=== PATIENT | male | born 1970 | race Caucasian/White ===

== ENCOUNTER 2020-10-06 08:28 | Emergency (ER) | payer OTHER, SELFPAY ==
[2020-10-06] VITALS (47 sets, daily range): BP systolic 116–163; BP diastolic 64–105; PULSE 65–87; RESP 12–20; TEMP 36.1; O2SAT 93–100
--- NOTE | ~2020-10-06 | CT_ITS ---
EXAMINATION: CTA brain carotid DATE: 10/06/2020 11:22 INDICATION: Pulsatile tinnitus. TECHNIQUE: Computed tomographic angiography (CTA) of the head was performed without and with 100 mL O mnipaque-350 intravenous contrast. CTA of the neck was performed with intravenous contrast. Automated exposure control and iterative reconstruction technique were employed. The dose-length product was 1 930.35 mGy-cm. Maximum intensity projection and volume rendered 3D-reconstructions were created by amelia negro technologist on a separate workstation. COMPARISON: None. FINDINGS: HEAD CTA: There is no intracranial hemorrhage, acute infarction, or abnormal intracranial mass lesion . The ventricles are normal in size. There is mild mucosal thickening in the paranasal sinuses. The m astoid air cells are normal. The orbits are normal. The vertebral arteries are codominant. There is n o significant stenosis of basilar artery or the posterior cerebral arteries. There is no significant stenosis of the intracranial internal carotid arteries or anterior or middle cerebral arteries. Anter ior communicating artery is normal. The posterior communicating arteries are normal. There is no aneu rysm. NECK CTA: There are no pathologically enlarged lymph nodes. There is no significant stenosis in the v ertebral arteries. There is mild plaque in the proximal internal carotid arteries. There is 0% stenos is of the proximal right internal carotid artery relative to normal distal artery lumen diameter (RYANNE CET criteria). There is 0% stenosis of the proximal left internal carotid artery relative to normal d istal artery lumen diameter. There is mild cervical spondylosis. IMPRESSION: 1. Normal brain. No aneurysm or significant intracranial arterial stenosis. 2. 0% stenosis of the proximal internal carotid arteries relative to normal distal artery lumen diame ters (NASCET criteria). Reviewed, dictated and finalized at location A. PREVENTION REPRESENTATIVE IMPRESSION: 1. Normal brain. No aneurysm or significant intracranial arterial stenosis. 2. 0% stenosis of the proximal internal carotid arteries relative to normal dis maverick artery lumen diameters (NASCET criteria).
--- NOTE | 2020-10-06 08:39 | ED.NAVMDI ---
HPI - Nausea/Vomiting/Diarrhea General Chief complaint: Nausea/Vomiting/Diarrhea Stated complaint: ringing in head , diarrhea Time Seen by Provider: 10/06/20 08:39 History of Present Illness HPI Narrative: 50 yo male presents to the ED for diarrhea and ringing in his ears. He reports that he has had diarrhea for the past 4 days. He has had several loose bowel movements per day. Occasional small amounts of blood. This has been associated with constatn ringing in his head , which does not localize to either ear. This at times becomes pulsatile. Related Data Allergies Allergy/AdvReac Type Severity Reaction Status Date / Time ciprofloxacin Allergy Unknown Unknown Verified 01/12/20 15:49 Review of Systems Review of Systems: All systems reviewed & are unremarkable except as noted in HPI and below Constitutional: Constitutional: Denies chills, Denies fever(s) and Denies weakness ENT: Denies dizziness and Denies sore throat Cardiovascular: Cardiovascular: Denies chest pain Respiratory: Respiratory: Denies dyspnea Gastrointestinal: Gastrointestinal: Denies abdominal pain, Reports diarrhea, Denies nausea and Denies vomiting Genitourinary: Genitourinary: Denies dysuria Musculoskeletal: Musculoskeletal: Denies back pain Neurologic: Denies confusion, Denies dizziness, Denies syncope, Denies numbness and Denies weakness [facility] Family History Family History Mother Depression Father Family history of congestive heart failure Patient's father is Social History Social History Smoking status: Former smoker Alcohol intake: current Exam Const: General: healthy appearing, no acute distress and alert Orientation/consciousness: patient oriented x3 HENMT: Head: normal to inspection Ears: TM's normal bilaterally and EAC's normal Eyes: Pupils: Equal, round and reactive pupils present EOM: EOMs intact bilaterally Neck: Neck: normal visual inspection and no lymphadenopathy Chest: Chest palpation & inspection: no tenderness Resp: Effort & Inspection: normal respiratory effort Auscultation: clear to auscultation bilaterally, no rales, no rhonchi and no wheezes Cardio: Jugular venous distension: no JVD Rate: regular rate Rhythm: regular rhythm Heart sounds: no murmurs GI: Inspection: non-distended GI Palp: Yes Soft to palpation and No Tenderness to palpation present (GI) Skin: General skin exam: normal color Neuro: General: patient oriented x3, moves all extremities, no focal motor deficits and CN's II-XI intact bilaterally Cranial nerves: Yes Nystagmus not present Speech: normal speech Gait exam (Neuro): Normal gait present Extrem: General: no edema Psych: Appearance: well kempt Affect: normal affect Course Vital Signs Vital signs: Vital Signs Temperature 36.1 C L 10/06/20 08:35 Pulse Rate 87 10/06/20 08:35 Respiratory Rate 14 10/06/20 08:35 Blood Pressure 150/100 H 10/06/20 08:35 Pulse Oximetry 100 10/06/20 08:35 Temperature 36.1 C L 10/06/20 08:35 Pulse Rate 80 10/06/20 14:15 Respiratory Rate 12 10/06/20 14:15 Blood Pressure 141/80 H 10/06/20 14:15 Pulse Oximetry 99 10/06/20 14:15 MDM - Nausea/Vomiting/Diarrhea MDM Narrative Medical decision making narrative: Labs indicate dehydration. Imaging negative. Differential Diagnosis Differential diagnosis: Likely gastroenteritis, dehydration and other (carotid disssection, dehydration, ) Medical Records Attestation: I reviewed the patient's medical records. Lab Data Attestation: I reviewed the patient's lab results. Result diagrams: 10/06/20 08:56 10/06/20 08:56 Labs: Lab Results 10/06/20 10/06/20 10/06/20 Range/Units 08:56 08:56 09:02 WBC 7.4 (4.5-10.0) K/mm3 RBC 6.00 (4.6-6.20) M/mm3 Hgb 18.3 H (14.0-18.0) g/dL Hct 54.0 H (42
[2020-10-06 09:08] LABS: Basophils Percent Auto 0.4 % (0.2-1.2); Eosinophils Absolute Auto 0.1 K/mm3 (0-0.3); Eosinophils Percent Auto 1.5 % (0-4.4); Hemoglobin 18.3 g/dL (14.0-18.0); Immature Granulocyte Absolute 0.03 K/mm3 (0.00-0.031); Immature Granulocyte Percent A 0.4 % (0-0.5); Lymphocytes Absolute Auto 2.03 K/mm3 (0.9-3.2); Lymphocytes Percent Auto 27.5 % (18.3-44.2); Mean Corpuscular HGB Conc 33.9 g/dl (32-36); Mean Corpuscular Hemoglobin 30.5 pg (26-34); Mean Platelet Volume 10.6 fl (7.4-10.4); Monocytes Absolute Auto 0.6 K/mm3 (0.1-0.6); Monocytes Percent Auto 7.7 % (2.6-8.5); Neutrophils Absolute Auto 4.6 K/mm3 (1.3-6.7); Neutrophils Percent Auto 62.5 % (45.5-73.1); Platelet Count Result 238 k/mm3 (150-375); Red Cell Distribution Width 13.1 % (11.5-14.5); White Blood Count 7.4 K/mm3 (4.5-10.0)
[2020-10-06 09:17] LABS: Add Urine Microscopic? YES; Appearance Urine Clear (Clear); Bilirubin Urine Negative (Negative); Blood Urine Negative (Negative); Color Urine Yellow (Yellow); Glucose Urine UA Negative (Negative); Ketones Urine Negative (Negative); Leukocyte Esterase Ur Trace LEU/UL (Negative); Mucus Urine Few /lpf; Nitrate Urine Negative (Negative); Protein Urine 1+ mg/dL (Negative); RBC Urine 0-2 /hpf (0-2); Specific Grav Ur 1.025 (1.001-1.035); Transitional Epi Cells Urine Rare /hpf (None Seen); Urobilinogen Urine Negative mg/dL (<2.0); WBC Urine 0-3 /hpf
[2020-10-06 09:21] LABS: Alanine Aminotransferase 163 U/L (4-50); Albumin Level 4.7 g/dL (3.5-5.1); Alkaline Phosphatase 84 U/L (38-126); Anion Gap 10 mmol/L (8-16); Aspartate Amino Transferase 93 U/L (17-59); Bilirubin,Total 1.1 mg/dL (0.2-1.3); Blood Urea Nitrogen 15 mg/dL (9-20); Calcium 9.3 mg/dL (8.4-10.2); Carbon Dioxide 25 mmol/L (22-30); Chloride 106 mmol/L (98-107); Estimated CRCL calculation 156 ml/min; Estimated Glomerular Filt Rate > 60; Glucose 119 mg/dL (75-110); Lipase 136 U/L (23-300); Potassium 4.5 mmol/L (3.4-5.0); Sodium 141 mmol/L (137-145)
[2020-10-06] MEDS: SODIUM CHLORIDE 0.9% IV 1,000 ML 999 ML IV CONT ×2 (09:24→10:16)
[2020-10-06] MEDS: MECLIZINE HCL 25 MG TABLET PO (09:24)
[2020-10-06] MEDS: METOCLOPRAMIDE HCL 10 MG TABLET PO (14:09)
[2020-10-06] MEDS: diphenhydrAMINE HCl INJ 50 MG/ML VIAL 25 MG IM (14:09)
== END 2020-10-06 14:20 | disposition home or self-care (01) ==
PROVIDERS: Emergency Provider Emergency Medicine; PCP Family Medicine
DX: R19.7 Diarrhea, unspecified (principal); H93.19 Tinnitus, unspecified ear; Z87.891 Personal history of nicotine dependence
CPT/HCPCS: 36415; 70496; 70498; 80053; 81001; 83690; 85025; 96360; 96361; 96372; 99284; A9270; J1200; J7030; Q9967

== ENCOUNTER 2021-04-26 09:55 | Outpatient (CLI) | payer OTHER, SELFPAY ==
--- NOTE | 2021-04-26 10:24 | EST_ITS ---
Patient Info Name: Damian Harvey Age: 50 years : 1970 Gender: Male Ht: 74 in Wt: 280 lbs BSA: 2.62 m2 HR: 88 bpm BP: 119 / 84 mmHg Exam Date: 04/26/2021 10:36 AM Exam Location: [facility] Stress Patient Status: Outpatient Admit Date: 04/26/2021 Staff Ordering Physician: Deidre Amanda Attending Provider: Deidre Amanda Exercise Technologist: Jyotsna Crawford CT Exercise Physician: Tiago Schultz DO Exam Type: CA stress test treadmill Study Info An exercise stress test was performed. Summary 1. 1. Negative Raul exercise stress test for ischemic ST changes by ECG criteria. 2. 2. Good functional capacity, achieving 10 METs of workload. 3. 3. Appropriate HR response to exercise. 4. 4. Appropriate HR recovery at 1 minute post exercise. 5. 5. No imaging with stress testing. 6. 6. Patient informed of the above results. Protocol: Raul Stress ECG Details Stage: REST Duration (min): 0 min : 50 sec Speed (mph): 0.0 Grade (%): 0 HR (bpm): 88 SBP (mmHg): 119 DBP (mmHg): 84 METS: --- Stage: REST Duration (min): 4 min : 16 sec Speed (mph): 0.0 Grade (%): 0 HR (bpm): 90 SBP (mmHg): 119 DBP (mmHg): 84 METS: --- Stage: STAGE 1 Duration (min): 1 min : 0 sec Speed (mph): 1.7 Grade (%): 10 HR (bpm): 106 SBP (mmHg): 119 DBP (mmHg): 84 METS: --- Stage: STAGE 1 Duration (min): 2 min : 0 sec Speed (mph): 1.7 Grade (%): 10 HR (bpm): 112 SBP (mmHg): 119 DBP (mmHg): 84 METS: --- Stage: STAGE 1 Duration (min): 3 min : 0 sec Speed (mph): 1.7 Grade (%): 10 HR (bpm): 113 SBP (mmHg): 148 DBP (mmHg): 74 METS: --- Stage: STAGE 2 Duration (min): 1 min : 0 sec Speed (mph): 2.5 Grade (%): 12 HR (bpm): 118 SBP (mmHg): 148 DBP (mmHg): 74 METS: --- Stage: STAGE 2 Duration (min): 2 min : 0 sec Speed (mph): 2.5 Grade (%): 12 HR (bpm): 124 SBP (mmHg): 173 DBP (mmHg): 84 METS: --- Stage: STAGE 2 Duration (min): 3 min : 0 sec Speed (mph): 2.5 Grade (%): 12 HR (bpm): 129 SBP (mmHg): 173 DBP (mmHg): 84 METS: --- Stage: STAGE 3 Duration (min): 1 min : 0 sec Speed (mph): 3.4 Grade (%): 14 HR (bpm): 136 SBP (mmHg): 193 DBP (mmHg): 97 METS: --- Stage: STAGE 3 Duration (min): 2 min : 0 sec Speed (mph): 3.4 Grade (%): 14 HR (bpm): 145 SBP (mmHg): 193 DBP (mmHg): 97 METS: --- Stage: STAGE 3 Duration (min): 2 min : 31 sec Speed (mph): 3.4 Grade (%): 14 HR (bpm): 148 SBP (mmHg): 193 DBP (mmHg): 97 METS: --- Stage: RECOVERY Duration (min): 0 min : 28 sec Speed (mph): 0.0 Grade (%): 0 HR (bpm): 131 SBP (mmHg): 206 DBP (mmHg): 94 METS: --- Stage: RECOVERY Duration (min): 1 min : 28 sec Speed (mph): 0.0
== END 2021-04-26 09:56 | disposition home or self-care (01) ==
LOC: ANHCARD 09:56
PROVIDERS: PCP Family Medicine; Visit Provider Nurse Practitioner Family
DX: R07.9 Chest pain, unspecified (principal)
CPT/HCPCS: 93017

== ENCOUNTER 2022-10-11 15:30 | Emergency (ER) | payer OTHER, SELFPAY ==
--- NOTE | ~2022-10-11 | US_ITS ---
EXAMINATION: US scrotum doppler DATE: 10/11/2022 16:59 INDICATION: L testicle pain. . TECHNIQUE: Grayscale and Doppler ultrasound images of the testes were obtained. COMPARISON: None. FINDINGS: The right testis measures 3.1 x 4.0 x 2.6 cm. The left testis measures 2.8 x 3.7 x 2.8 cm. No testicular mass. There is increased vascular flow to the left testicle. The right epididymis is no rmal with normal vascular flow. The left epididymis is normal with normal vascular flow. There is no varicocele. Trace bilateral hydroceles. IMPRESSION: Hyperemia of the left testicular parenchyma, a nonspecific finding. Trace bilateral hydroceles. Reviewed, dictated and finalized at location K. AINABLE DESIGN CONSULTANT IMPRESSION: Hyperemia of the left testicular parenchyma, a nonspecific finding. Trace bilat eral hydroceles.
[2022-10-11 15:38] VITALS: BP 135/93; PULSE 78; RESP 16; TEMP 36.3; O2SAT 100
--- NOTE | 2022-10-11 16:30 | ED.GENADULT ---
HPI - General Adult General Chief complaint: Urogenital-Male Stated complaint: lump under testicle Time Seen by Provider: 10/11/22 15:49 History of Present Illness HPI narrative: This is a 52-year-old male presenting ED with chief complaint of testicle pain. Patient says that over the last 2 days he notes that his left testicle has become progressively more tender. He is also having pain radiating to his stomach and down his leg. Describes as a stabbing / aching pain as 5 out 10 intensity. He is not taking any pain medication. He denies any swelling to his scrotum, fever, chills nausea vomiting diarrhea. Patient is sexually active with his and is not concerned for STDs. Related Data Allergies Allergy/AdvReac Type Severity Reaction Status Date / Time ciprofloxacin Allergy Unknown Unknown Verified 08/25/21 15:15 [facility] Past Medical History Medical History BMI 34.0-34.9,adult BMI 35.0-35.9,adult Family History Family History Mother Depression Father Family history of congestive heart failure Patient's father is Social History Social History Smokeless tobacco user: chewing tobacco Alcohol intake: current Substance use: never Substance use type: does not use Exam Narrative: APPEARANCE: No apparent distress. Head: atraumatic. EYES: EOMI, NOSE: Atraumatic NECK: Trachea midline RESPIRATORY: No increased rate of breathing CARDIOVASCULAR: RRR, ABDOMINAL: Non-distended MUSCULOSKELETAl: No obvious deformities NEURO: Alert. Moving 4/4 extremities SKIN:: Warm, dry. Normal color PSYCHIATRIC: Normal affect Genital exam: Left testicle is tender to touch, normal lie no overlying skin changes, right testicle normal Course Vital Signs Vital signs: Vital Signs Temperature 97.3 F L 10/11/22 15:38 Pulse Rate 78 10/11/22 15:38 Respiratory Rate 16 10/11/22 15:38 Blood Pressure 135/93 H 10/11/22 15:38 Pulse Oximetry 100 10/11/22 15:38 Oxygen Delivery Room Air 10/11/22 15:38 Temperature 97.3 F L 10/11/22 15:38 Pulse Rate 78 10/11/22 15:38 Respiratory Rate 16 10/11/22 15:38 Blood Pressure 135/93 H 10/11/22 15:38 Pulse Oximetry 100 10/11/22 15:38 Oxygen Delivery Room Air 10/11/22 15:38 Medical Decision Making MDM Narrative Medical decision making narrative: -Presentation: 52-year-old male presenting with testicle pain -DDX includes but is not limited to: testicular torsion, epididymitis, orchitis, scrotal cellulitis -Co-morbidities complicating care: Cipro allergy -Social determinants of health: patient is happily with his and has no concern for STDs -External Chart Review: none -Hx from independent Sources: none -Discussion of Management/Consultants: none -Independent interpretation of studies: his urinalysis had no signs of infection. Scrotal ultrasound showed old hyperemia of the left testicle. Epididymis was normal. No evidence of testicular torsion. The patient has no evidence of parotitis/mumps. -Procedures: None -Interventions: Coldiron 5 x 1, Bactrim DS -Shared decision making / Disposition: I discussed the patient's results with him. It is possible he has early orchitis. Patient will be treated with Bactrim is seen as an allergy to Cipro. Patient has been given follow-up with a urologist. He has been given return precautions -RX: Motrin, Tylenol, Bactrim DS b.i.d. times 10 days Vital Signs Vital Signs: Vital Signs Temperature 97.3 F L 10/11/22 15:38 Pulse Rate 78 10/11/22 15:38 Respiratory Rate 16 10/11/22 15:38 Blood Pressure 135/93 H 10/11/22 15:38 Pulse Oximetry 100 10/11/22 15:38 Oxygen Delivery Room Air 10/11/22 15:38 Temperature 97.3 F L 10/11/22 15:38 Pulse Rate 78 10/11/22 15:38 Res
[2022-10-11 16:43] LABS: Appearance Urine Clear (Clear); Bilirubin Urine Negative (Negative); Blood Urine Negative (Negative); Color Urine Yellow (Yellow); Glucose Urine UA Negative (Negative); Ketones Urine Negative (Negative); Leukocyte Esterase Ur Negative LEU/UL (Negative); Nitrate Urine Negative (Negative); Protein Urine Negative (Negative); Specific Grav Ur >= 1.030 (1.001-1.035); Urobilinogen Urine 0.2 mg/dL (<2.0)
[2022-10-11 16:44] LABS: Add Urine Microscopic? NO
[2022-10-11] MEDS: HYDROcodone/acetaminophen (*CRX) 5-325 MG TABLET 1 TAB PO (18:06)
[2022-10-11] MEDS: SULFAMETHOXAZOLE/TRIMETHOPRIM 800/160 MG DS TABLET 1 TAB PO (18:06)
== END 2022-10-11 18:25 | disposition home or self-care (01) ==
LOC: ANHED 18:18
PROVIDERS: Emergency Provider Emergency Medicine; PCP Family Medicine
DX: N45.2 Orchitis (principal)
CPT/HCPCS: 76870; 81003; 93976; 99284; A9270

== ENCOUNTER 2024-07-07 07:57 | Outpatient (CLI) | payer OTHER, SELFPAY ==
--- NOTE | ~2024-07-07 | MR_ITS ---
EXAMINATION: MR shoulder RT wo con DATE: 07/07/2024 08:29 INDICATION: Other specified joint disorders, right shoulder. Right shoulder pain. TECHNIQUE: Magnetic resonance imaging (MRI) of the right shoulder was performed without intravenous c ontrast. Sequences included axial PD-weighted FS FSE, coronal oblique PD-weighted FS FSE and T2-weigh kristopher FS FSE, and sagittal oblique T2-weighted FS FSE and T1-weighted FSE. COMPARISON: None. FINDINGS: Coracoacromial arch: The acromion undersurface is curved in morphology (type II). Subacromial spurring is noted. There is severe acromioclavicular joint osteoarthritis. There is moderate subacromial/subdeltoid bursitis. Rotator cuff: There is a full-thickness tear of supraspinatus and infraspinatus tendons measuring 4.5 cm anterior t o posterior by 4.6 cm proximal to distal. There is mild teres minor tendinopathy. There is mild subsc apularis tendinopathy. There is mild fatty atrophy of supraspinatus and infraspinatus muscle bellies. Biceps tendon and glenoid labrum: Biceps tendon is in bicipital groove. There is mild intra-articular biceps tendinopathy. There is deg eneration of the glenoid labrum without well-defined tear. Fluid: There is a small glenohumeral joint effusion. Bones/cartilage: There is cartilage surface irregularity of glenoid and humeral head. IMPRESSION: 1. Massive full-thickness rotator cuff tear. 2. Mild glenohumeral joint chondrosis. 3. Severe acromioclavicular joint osteoarthritis. 4. Small glenohumeral joint effusion and moderate subacromial/subdeltoid bursitis. 5. Mild biceps tendinopathy. Reviewed, dictated and finalized at location [] IMPRESSION: 1. Massive full-thickness rotator cuff tear. 2. Mild glenohumeral joint chondrosis. 3. Severe acromioclavicular joint osteoarthritis. 4. Small glenohumeral joint effusion and moderate subacromial/subdeltoid bursit is. 5. Mild biceps tendinopathy.
== END 2024-07-07 07:58 | disposition home or self-care (01) ==
PROVIDERS: PCP Family Medicine
DX: M25.811 Other specified joint disorders, right shoulder (principal); M75.121 Complete rotator cuff tear or rupture of right shoulder, not specified as traumatic; M94.211 Chondromalacia, right shoulder; M19.011 Primary osteoarthritis, right shoulder; M25.411 Effusion, right shoulder; M75.51 Bursitis of right shoulder; M75.21 Bicipital tendinitis, right shoulder
CPT/HCPCS: 73221

== ENCOUNTER 2024-08-22 15:31 | Outpatient (CLI) | payer OTHER, SELFPAY ==
--- NOTE | ~2024-08-22 | XR_ITS ---
EXAMINATION: XR hip BI 2V w AP pelvis DATE: 08/22/2024 16:06 INDICATION: Pain in unspecified hip. TECHNIQUE: An anteroposterior view of the pelvis and 2 views of each hip were obtained. COMPARISON: Pelvis and hip radiographs 03/18/2015 FINDINGS: Alignment is normal. No fracture. There is fixation of right femoral head and neck with 4 s crews. There is fixation of left femoral head and neck with 4 screws. There is severe bilateral hip j oint osteoarthritis. IMPRESSION: 1. Severe bilateral hip joint osteoarthritis. Reviewed, dictated and finalized at location A. KER
--- NOTE | ~2024-08-22 | XR_ITS ---
EXAMINATION: XR lumbar spine min 4V DATE: 08/22/2024 16:06 INDICATION: Pain in hip. TECHNIQUE: 6 views of lumbar spine were obtained. COMPARISON: Lumbar spine radiographs 03/18/2015 FINDINGS: There is 5 degrees dextrocurvature of lumbar spine. Vertebral body heights are normal. Ther e is severely decreased disc height at L5-S1. There is multilevel facet joint osteoarthritis, severe in the lower lumbar spine. IMPRESSION: 1. Severe lower lumbar spondylosis. Reviewed, dictated and finalized at location A. ER DIP NET
[2024-08-22 15:56] LABS: Alanine Aminotransferase 54 U/L (6-50); Albumin Level 4.8 g/dL (3.5-5.1); Alkaline Phosphatase 90 U/L (38-126); Anion Gap 6 mmol/L (4-12); Aspartate Amino Transferase 36 U/L (17-59); Bilirubin,Total 1.7 mg/dL (0.2-1.3); Blood Urea Nitrogen 14 mg/dL (9-20); Calcium 9.2 mg/dL (8.4-10.2); Carbon Dioxide 30 mmol/L (22-30); Chloride 101 mmol/L (98-107); Cholesterol 188 mg/dL (0-200); Estimated Glomerular Filt Rate > 60; Glucose 182 mg/dL (65-110); HDL Direct 47 mg/dL; Potassium 4.2 mmol/L (3.4-5.0); Sodium 137 mmol/L (137-145); Triglycerides 178 mg/dL (<150)
[2024-08-22 16:06] LABS: LDL Cholesterol Direct 111 mg/dL
[2024-08-22 16:25] LABS: Prostate Specific Antigen 1.3 ng/mL (< OR = 4.0)
--- OUTSIDE RECORDS SUMMARY | 2024-08-26 01:51 | XMS_ITS | Referral Summary ---
Author Organization [facility] Address [address] [place] [address] Care Team Providers Care Urology Nurse Name Role Phone Osman Astorga MD Primary Care Provider [phone] Source Comments [facility],non-owned Affiliates and Associated Physician Practices is amultiple site organization consisting of ambulatory clinics and hospital sitesin [place], [place], [place] and [place]. This disclosure is being madepursuant to the Care Everywhere program and may not contain all information available regarding this patient. Last updated 18.[facility] Encounters Date Type Department Care Team Description 08/06/2024 12:34 PM DIRECTOR OF VENDOR MANAGEMENT - 08/06/2024 11:59 PM DIRECTOR OF VENDOR MANAGEMENT Hospital Encounter [facility] DIAGNOSTIC RAD [facility] [address] [place] [address] Dylan Torrez MD Discharge Disposition: Home or Self Care 08/06/2024 11:40 AM DIRECTOR OF VENDOR MANAGEMENT Office Visit [facility] - Orthopedics [address] [place] [address] Dylan Torrez MD Right shoulder pain, unspecified chronicity (Primary Dx) 07/31/2024 Travel from Last 3 Months Allergies No known active allergies Medications * Be aware that medications may not be up to date on this document. Alwaysverify current medications with the patient. Medication Sig Dispensed Refills Start Date End Date Status levothyroxine (Synthroid) 200 MCG tablet Take 1 (one) tablet by mouth once daily Active naproxen (Naprosyn) 500 MG tablet Take 1 (one) tablet by mouth 2 times daily with morning and evening meal 05/07/2024 Active tadalafil (Cialis) 10 MG tablet Take 1 (one) tablet by mouth once daily as needed 07/21/2024 Active cyclobenzaprine (Flexeril) 10 MG tablet Take 1 (one) tablet by mouth 3 times daily as needed FOR MUSCLE SPASM 05/22/2024 08/06/2024 Discontinued( List Clean-Up) HYDROcodone-aceta minophen (Irons) 5-325 MG tablet Take 1 (one) tablet by mouth every 6 hours as needed 01/05/2024 08/06/2024 Discontinued( List Clean-Up) ketorolac (Toradol) 10 MG tablet Take 1 (one) tablet by mouth every 6 hours as needed for Pain 01/05/2024 08/06/2024 Discontinued( List Clean-Up) levothyroxine (Synthroid) 100 MCG tablet Take 2 (two) tablets by mouth once daily 01/05/2024 08/06/2024 Discontinued( List Clean-Up) oxyCODONE-acetami nophen (Percocet) 5-325 MG tablet Take 1 (one) tablet by mouth every 6 hours as needed 05/07/2024 08/06/2024 Discontinued( List Clean-Up) sildenafil (Viagra) 100 MG tablet Take 1 (one) tablet by mouth once daily as needed 12/24/2023 08/06/2024 Discontinued( List Clean-Up) tadalafil (Cialis) 10 MG half tablet Take 5 mg by mouth as directed 08/06/2024 Discontinued( List Clean-Up) Active Problems No known active problems Social History Tobacco Use Types Packs/Day Years Used Date Smoking Tobacco: Never Smokeless Tobacco: Never Tobacco Cessation:Counseling Given: Not Answered PHQ-2 Answer Date Recorded Patient Health Questionnaire-2 Score 1 08/06/2024 Sex and Gender Information Value Date Recorded Sex Assigned at Not on file Gender Identity Not on file Sexual Orientation Not on file Plan of Treatment Not on file Procedures Procedure Name Priority Date/Time Associated Diagnosis Comments XR SHOULDER RIGHT 2VW OR MORE Routine 08/06/2024 12:42 PM DIRECTOR OF VENDOR MANAGEMENT Right shoulder pain, unspecified chronicity from Last 3 Months Results * XR Shoulder Right 2Vw or More (08/06/2024 12:42 PM DIRECTOR OF VENDOR MANAGEMENT) Anatomical Region Laterality Modality Upper Extremity Computed Radiogr aphy 08/06/2024 1:02 PM DIRECTOR OF VENDOR MANAGEMENT Impressions 08/06/2024 1:03 PM DIRECTOR OF VENDOR MANAGEMENT IMPRESSION: Mild degenerative change. > Interpreting Provider: Samuel Bernard MD on 08/06/2024 1:03 PM Narrative 08/06/2024 1:03 PM DIRECTOR OF VENDOR MANAGEMENT PROCEDURE: ??XR SHOULDER RIGHT 2VW OR MORE DATE/TIME OF EXAM: ??08/06/2024 12:42 PM CLINICAL INFORMATION: None relevant/not provided if blank. Indication: M25.511: Right shoulder pain, unspecified chronicity Additional History: COMPARISON: None. FINDINGS: No fracture or dislocation is present. There is mild degenerative change at the acromioclavicular glenohumeral joints. Procedure Note Samuel Bernard MD - 08/06/2024 PROCEDURE: XR SHOULDER RIGHT 2VW OR MORE DATE/TIME OF EXAM: 08/06/2024 12:42 PM CLINICAL INFORMATION: None relevant/not provided if blank. Indication: M25.511: Right shoulder pain, unspecified chronicity Additional History: COMPARISON: None. FINDINGS: No fracture or dislocation is present. There is mild degenerative changeat the acromioclavicular glenohumeral joints. IMPRESSION: Mild degenerative change. > Interpreting Provider: Samuel Bernard MD on 08/06/2024 1:03 PM Dylan Torrez MD DIAGNOSTIC IMAGING O RDERABLES from Last 3 Months Care Teams Urology Nurse Relationship Specialty Start Date End Date Osman Astorga MD [address] [place] [address] PCP - General Family Medicine 08/06/24
--- OUTSIDE RECORDS SUMMARY | 2024-08-26 01:51 | XMS_ITS | Patient Health Summary ---
Author Organization [facility] Address [address] [place] [address] Care Team Providers Care Lead Slot Technician Name Role Phone Osman Astorga MD Primary Care Provider [phone] Note from [facility],non-owned Affiliates and Associated Physician Practices is amultiple site organization consisting of ambulatory clinics and hospital sitesin [place], [place], [place] and [place]. This disclosure is being madepursuant to the Care Everywhere program and may not contain all information available regarding this patient. Last updated 18.[facility] Allergies No known active allergies Medications * Be aware that medications may not be up to date on this document. Alwaysverify current medications with the patient. * levothyroxine (Synthroid) 200 MCG tablet Take 1 (one) tablet by mouth once daily * naproxen (Naprosyn) 500 MG tablet(Started 05/07/2024) Take 1 (one) tablet by mouth 2 times daily with morning and evening meal * tadalafil (Cialis) 10 MG tablet(Started 07/21/2024) Take 1 (one) tablet by mouth once daily as needed Ended Medications* cyclobenzaprine (Flexeril) 10 MG tablet(Started 05/22/2024) (Discontinued) Take 1 (one) tablet by mouth 3 times daily as needed FOR MUSCLE SPASM * HYDROcodone-acetaminophen ([place]) 5-325 MG tablet(Started 01/05/2024) (Discontinued) Take 1 (one) tablet by mouth every 6 hours as needed * ketorolac (Toradol) 10 MG tablet(Started 01/05/2024)(Discontinued) Take 1 (one) tablet by mouth every 6 hours as needed for Pain * levothyroxine (Synthroid) 100 MCG tablet(Started 01/05/2024)(Discontinued) Take 2 (two) tablets by mouth once daily * oxyCODONE-acetaminophen (Percocet) 5-325 MG tablet(Started 05/07/2024) (Discontinued) Take 1 (one) tablet by mouth every 6 hours as needed * sildenafil (Viagra) 100 MG tablet(Started 12/24/2023)(Discontinued) Take 1 (one) tablet by mouth once daily as needed * tadalafil (Cialis) 10 MG half tablet(Discontinued) Take 5 mg by mouth as directed Active Problems No known active problems Social History Tobacco Use Types Packs/Day Years Used Date Smoking Tobacco: Never Smokeless Tobacco: Never Tobacco Cessation:Counseling Given: Not Answered PHQ-2 Answer Date Recorded Patient Health Questionnaire-2 Score 1 08/06/2024 Sex and Gender Information Value Date Recorded Sex Assigned at Not on file Gender Identity Not on file Sexual Orientation Not on file Procedures * XR SHOULDER RIGHT 2VW OR MORE(Performed 08/06/2024) Performed for Right shoulder pain, unspecified chronicity Results * XR Shoulder Right 2Vw or More (08/06/2024 12:42 PM UX INTERACTION DESIGNER) Anatomical Region Laterality Modality Upper Extremity Computed Radiogr aphy 08/06/2024 1:02 PM UX INTERACTION DESIGNER Impressions 08/06/2024 1:03 PM UX INTERACTION DESIGNER IMPRESSION: Mild degenerative change. > Interpreting Provider: Samuel Bernard MD on 08/06/2024 1:03 PM Narrative 08/06/2024 1:03 PM UX INTERACTION DESIGNER PROCEDURE: ??XR SHOULDER RIGHT 2VW OR MORE [...] PM Dylan Torrez MD [facility] Care Teams Lead Slot Technician Relationship Specialty Start Date End Date Osman Astorga MD [address] [place] [address] PCP - General Family Medicine 08/06/24
--- OUTSIDE RECORDS SUMMARY | 2024-08-26 01:51 | XMS_ITS | Clinical Summary ---
Author Organization [facility] Address [address] [place] [address] Care Team Providers Care Certified Credit Counselor Name Role Phone Osman Astorga MD Primary Care Provider [phone] [facility],non-owned Affiliates and Associated Physician Practices is amultiple site organization consisting of ambulatory clinics and hospital sitesin [place], [place], [place] and [place]. This disclosure is being madepursuant to the Care Everywhere program and may not contain all information available regarding this patient. Last updated 18.[employer] [facility] Allergies No known active allergies Medications * [...] 05/22/2024 08/06/2024 Discontinued( List Clean-Up) HYDROcodone-aceta minophen ([place]) 5-325 MG tablet Take 1 (one) tablet [...] Clean-Up) Active Problems No known active problems Encounters Date Type Department Care Team Description 08/06/2024 12:34 PM SOLAR PV INSTALLER - 08/06/2024 11:59 PM SOLAR PV INSTALLER Hospital Encounter [facility] DIAGNOSTIC RAD [facility] [address] [place] [address] Dylan Torrez MD Discharge Disposition: Home or Self Care 08/06/2024 11:40 AM SOLAR PV INSTALLER Office Visit [facility] - Orthopedics [address] [place] [address] Dylan Torrez MD Right shoulder pain, unspecified chronicity (Primary Dx) 07/31/2024 Travel from Last 3 Months Social History Tobacco Use Types Packs/Day Years Used Date Smoking Tobacco: Never Smokeless Tobacco: Never Tobacco Cessation:Counseling Given: Not Answered PHQ-2 Answer Date Recorded Patient Health Questionnaire-2 Score 1 08/06/2024 Sex and Gender Information Value Date Recorded Sex Assigned at Not on file Gender Identity Not on file Sexual Orientation Not on file Plan of Treatment Health Maintenance Due Date Last Done Comments COLOGUARD (AGES 45-75) - COL ON CA SCREENING 1968 COLON MONITORING 1968 COLONOSCOPY - COLON CA SCREENING 1968 CT COLONOGRAPHY - COLON CA SCREENING 1968 Colorectal Cancer Screening 1968 FIT - COLON CA SCREENING 1968 FLEX SIG - COLON CA SCREENING 1968 LIPID TESTING 1968 HIV SCREENING 1983 HEPATITIS C SCREENING 05/11/1986 DTAP/TDAP/TD VACCINES (1 - Tdap) 1987 HEPATITIS B VACCINE (1 of 3 - 19+ 3-dose series) 1987 ZOSTER VACCINE (1 of 2) 2018 COVID-19 VACCINE (1 - 2023-2 5 season) 2024 INFLUENZA VACCINE (#1) 2024 DEPRESSION SCREENING Completed 08/06/2024 HIB VACCINE Aged Out No longer eligi ble based on patient's age to complete this topic HPV VACCINE Aged Out No longer eligi ble based on patient's age to complete this topic MENINGOCOCCAL VACCINE Aged Out No dontrell chantal eligible based on patient's age to complete this topic PNEUMOCOCCAL VACCINE Aged Out No long er eligible based on patient's age to complete this topic Procedures Procedure Name Priority Date/Time Associated Diagnosis Comments XR SHOULDER RIGHT 2VW OR MORE Routine 08/06/2024 12:42 PM SOLAR PV INSTALLER Right shoulder pain, unspecified chronicity from Last 3 Months Results * XR Shoulder Right 2Vw or More (08/06/2024 12:42 PM SOLAR PV INSTALLER) Anatomical Region Laterality Modality Upper Extremity Computed Radiogr aphy 08/06/2024 1:02 PM SOLAR PV INSTALLER Impressions 08/06/2024 1:03 PM SOLAR PV INSTALLER IMPRESSION: Mild degenerative change. > Interpreting Provider: Samuel Bernard MD on 08/06/2024 1:03 PM Narrative 08/06/2024 1:03 PM SOLAR PV INSTALLER PROCEDURE: ??XR SHOULDER RIGHT 2VW OR MORE [...] RDERABLES from Last 3 Months Care Teams Certified Credit Counselor Relationship Specialty Start Date End Date Osman Astorga MD [address] [place] [address] PCP - General Family Medicine 08/06/24
--- OUTSIDE RECORDS SUMMARY | 2024-08-26 01:51 | XMS_ITS | Encounter Summary ---
Author Organization [facility] Address [facility] [place] [address] Care Team Providers Care Diagnostic Technician Name Role Phone Osman Astorga MD Primary Care Provider [phone] Encounter Details Date Type Department Care Team (Late st Contact Info) Description 08/06/2024 12:34 PM ELECTRIC INSTALLER - 08/06/2024 11:59 PM ELECTRIC INSTALLER Hospital Encounter [facility] DIAGNOSTIC RAD [facility] [address] [address] Dylan Torrez MD [address] [facility] [place] [address] Discharge Disposition: Home or Self Care Social History Tobacco Use Types Packs/Day Years Used Date Smoking Tobacco: Never Smokeless Tobacco: Never PHQ-2 Answer Date Recorded Patient Health Questionnaire-2 Score 1 08/06/2024 Sex and Gender Information Value Date Recorded Sex Assigned at Not on file Gender Identity Not on file Sexual Orientation Not on file documented as of this encounter Medications at Time of Discharge Medication Sig Dispensed Refills Start Date End Date levothyroxine (Synthroid) 200 MCG tablet Take 1 (one) tablet by mouth once daily naproxen (Naprosyn) 500 MG tablet Take 1 (one) tablet by mouth 2 times daily with morning and evening meal 05/07/2024 tadalafil (Cialis) 10 MG tablet Take 1 (one) tablet by mouth once daily as needed 07/21/2024 documented as of this encounter Plan of Treatment Not on file documented as of this encounter Procedures Procedure Name Priority Date/Time Associated Diagnosis Comments XR SHOULDER RIGHT 2VW OR MORE Routine 08/06/2024 12:42 PM ELECTRIC INSTALLER Right shoulder pain, unspecified chronicity documented in this encounter Results * XR Shoulder Right 2Vw or More (08/06/2024 12:42 PM ELECTRIC INSTALLER) Anatomical Region Laterality Modality Upper Extremity Computed Radiogr aphy 08/06/2024 1:02 PM ELECTRIC INSTALLER Impressions 08/06/2024 1:03 PM ELECTRIC INSTALLER IMPRESSION: Mild degenerative change. > Interpreting Provider: Samuel Bernard MD on 08/06/2024 1:03 PM Narrative 08/06/2024 1:03 PM ELECTRIC INSTALLER PROCEDURE: ??XR SHOULDER RIGHT 2VW OR [...] Dylan Torrez MD DIAGNOSTIC IMAGING O RDERABLES documented in this encounter Visit Diagnoses Diagnosis Right shoulder pain, unspecified chronicity documented in this encounter Care Teams Diagnostic Technician Relationship Specialty Start Date End Date Osman Astorga MD [address] [place] [address] PCP - General Family Medicine 08/06/24 documented as of this encounter
--- OUTSIDE RECORDS SUMMARY | 2024-08-26 01:52 | XMS_ITS | CONTINUITY OF CARE DOCUMENT ---
Author Name bryan adams Address Unknown Organization [facility] Address [address] [place] [address] Phone [phone] Care Team Providers Care Fleshing Machine Operator Name Role Phone Jordan Henson MD Unavailable [phone] Jordan Henson MD Unavailable [phone] INSURANCE PROVIDERS Payer name Policy type / Coverage type Mayetta red green party ID [facility] [id number] Other [id number]
--- OUTSIDE RECORDS SUMMARY | 2024-08-26 01:52 | XMS_ITS | Encounter Summary ---
Author Organization [facility] Address [address] [place] [address] [place] [address] Care Team Providers Care Programming Intern Name Role Phone Unavailable Primary Care Provider Unavailabl e Encounter Details Date Type Department Care Team (Latest Contact Info) Description 07/31/2024 Travel Social History Tobacco Use Types Packs/Day Years Used Date Smoking Tobacco: Never Assessed Sex and Gender Information Value Date Recorded Sex Assigned at Not on file Gender Identity Not on file Sexual Orientation Not on file documented as of this encounter Plan of Treatment Not on file documented as of this encounter Visit Diagnoses Not on filedocumented in this encounter
--- OUTSIDE RECORDS SUMMARY | 2024-08-26 01:52 | XMS_ITS | Encounter Summary ---
Author Organization [facility] Address [address] [place] [address] [place] [address] Care Team Providers Care Riprap Placing Supervisor Name Role Phone Osman Astorga MD Primary Care Provider [phone] Reason for Visit * Reason Comments Shoulder Pain Rt, Eval Encounter Details Date Type Department Care Team (Late st Contact Info) Description 08/06/2024 11:40 AM CONTRACT TECHNICAL WRITER Office Visit [facility] - Orthopedics [address] [place] [address], [place] [phone] Dylan Torrez MD [address] [place] [address] OF ORTHOPEDIC SURGERY [place], [place] [id number] Right shoulder pain, unspecified chronicity (Primary Dx) Social History Tobacco Use Types Packs/Day Years Used Date Smoking Tobacco: Never Smokeless Tobacco: Never Tobacco Cessation:Counseling Given: Not Answered PHQ-2 Answer Date Recorded Patient Health Questionnaire-2 Score 1 08/06/2024 Sex and Gender Information Value Date Recorded Sex Assigned at Not on file Gender Identity Not on file Sexual Orientation Not on file documented as of this encounter Progress Notes * Dylan Torrez MD - 08/06/2024 12:12 PM CST Images from the original note were not included. Dylan Torrez MD [facility] Orthopaedic Sports Medicine Adult and Pediatric Date of Clinic Visit: 08/06/[address] Osman Astorga MD ; Today we had the pleasure of seeing Damian Harvey in [facility] for evaluation of his right shoulder pain. 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 landed on outstretched right hand. Had immediate right shoulder pain. Has severe issues with overhead activities. Cannot sleep on his right shoulder. The symptoms are activity-related and improved with rest. The symptoms limit their activities of daily living. No fevers, chills, numbness, paresthesias or gross motor weakness. They have tried icing, tylenol, anti- inflammatory medications, and activity modification for their symptoms. Handedness: right-handed Pain Score: 08/06/24 1205 PainSc: Two PainLoc: Shoulder SANE Score (0-100): No data to display 08/06/2024 Patient-entered Ortho Intake Form Referring provider Dr. Lawson Reason for visit Right Shoulder (or upper arm) What are your symptoms? Weakness Fatigue How did this pain/injury begin? Fell When did your pain/injury start? Sept 10 Does any other area/part of your body hurt? Hips Active Worker's Comp claim? No Pain level at rest 2 Pain level with activity 4 What makes your pain worse? Lifting arm up Treatments tried Rest/activity modification Currently employed? Yes Smoking status Previous Smoker Alcohol intake? No Taking opioid/narcotic? No Multiple values from one day are sorted in reverse-chronological order 08/06/2024 Patient-Reported Satisfaction Current state satisfactory? No Prior treatment? No Currently taking narcotics? No 08/06/2024 PROMIS Upper Extremity PROMIS UE Function Score 37 (moderate dysfunction) 08/06/2024 PROMIS Pain Interference PROMIS PI Score 60 (mild) 08/06/2024 Patient-entered ASES Ases Score 65 08/06/2024 Depression Screening PHQ-2 Score Incomplete Patient Health Questionnaire-2 Score 1 Medications Current Outpatient Medications on File Prior to Visit Medication Sig Dispense Refill cyclobenzaprine (Flexeril) 10 MG tablet Take 1 (one) tablet by mouth 3 times daily as needed FOR MUSCLE SPASM HYDROcodone-acetaminophen ([place]) 5-325 MG tablet Take 1 (one) tablet by mouth every 6 hours as needed ketorolac (Toradol) 10 MG tablet Take 1 (one) tablet by mouth every 6 hours as needed for Pain levothyroxine (Synthroid) 100 MCG tablet Take 2 (two) tablets by mouth once daily levothyroxine (Synthroid) 200 MCG tablet Take 1 (one) tablet by mouth once daily naproxen (Naprosyn) 500 MG tablet Take 1 (one) tablet by mouth 2 times daily with morning and evening meal oxyCODONE-acetaminophen (Percocet) 5-325 MG tablet Take 1 (one) tablet by mouth every 6 hours as needed sildenafil (Viagra) 100 MG tablet Take 1 (one) tablet by mouth once daily as needed tadalafil (Cialis) 10 MG half tablet Take 5 mg by mouth as directed tadalafil (Cialis) 10 MG tablet Take 1 (one) tablet by mouth once daily as needed No current facility-administered medications on file prior to visit. Allergies as of 08/06/2024 (Not on File) No past medical history on file. No past surgical history on file. 14 System review of systems: Pertinent Positives and Negatives HEENT- No blurred vision Cardio- No chest pain or palpations Respiratory- No shortness of breath Abd- No abdnominal pain 14 System review of systems was otherwise negative as reviewed today. Social History Occupational History Not on file Tobacco Use Smoking status: Not on file Smokeless tobacco: Not on file Substance and Sexual Activity Alcohol use: Not on file Drug use: Not on file Sexual activity: Not on file Family History No family history on file. Otherwise reviewed and non-contributory Physical Exam: Awake, alert and oriented. Gait is normal. No cervical spine tenderness and full neck range of motion in all 6 directions. No step off or deformity noted. Evaluation of the uninjured right shoulder noted no skin lesions, neurovascularly intact. There wasno tenderness/swelling/deformity. Ligamentously stable glenohumeral joint. 5/5 strength in elevation. The left shoulder is neurovascularly intact with no active skin lesions. There is not scapular winging. There is tenderness of the rotator cuff insertion and long head biceps. Strength for elevation in the scapular plane is 4/5. There is not a sulcus sign. There is not generalized ligamentous laxity. Anterior apprehension is not applicable. Relocation test is not applicable. Posterior apprehension is not applicable. Garfield's test is positive. Shoulder impingement test is negative. Active Shoulder Range of Motion: Right: Forward Elevation 140 degrees Abduction 130 degrees External Rotation 20 degrees Internal Rotation T12 Left: Forward Elevation 170 degrees Abduction 170 degrees External Rotation 60 degrees Internal Rotation T6 Imaging: I have personally reviewed the patient's imaging results. I have independently visualized and interpreted the images myself. By my read, the pertinent findings include: shoulder Xray MRI images and report reviewed by me are positive for massive supraspinatus and infraspinatus rotator cuff tears with retraction to the level of the glenohumeral joint space and severe muscular edema present. . Impression: right shoulder traumatic massive rotator cuff tear Plan: We recommend arthroscopic right rotator cuff repair (poss rp). He understands that there is a higher than typical chance that the tear may heal incompletely or retear due to its size. He may be a candidate for lower trapezius transfer or reverse shoulder replacement in the future. Operative and non-operative treatment options were discussed and they elected to proceed. Damian understands all risks, benefits, alternatives, personnel, complications and expected outcomes pertaining to the procedure. They understand that it may take up to a year to fully recover from surgery. Please do not hesitate to contact me with questions regarding him or any other patient in the future. Our clinical nurse, Temitope Plasencia, can be reached at . Sincerely, Dylan Torrez MD RACT TECHNICAL WRITER * Ady Mccain RN - 08/06/2024 12:06 PM CST Here for Rt. Shoulder eval.-TS RACT TECHNICAL WRITER documented in this encounter Plan of Treatment Not on file documented as of this encounter Results * XR Shoulder Right 2Vw or More (08/06/2024 12:42 PM CONTRACT TECHNICAL WRITER) Anatomical Region Laterality Modality Upper Extremity Computed Radiogr aphy 08/06/2024 1:02 PM CONTRACT TECHNICAL WRITER Impressions 08/06/2024 1:03 PM CONTRACT TECHNICAL WRITER IMPRESSION: Mild degenerative change. > Interpreting Provider: Samuel Bernard MD on 08/06/2024 1:03 PM Narrative 08/06/2024 1:03 PM CONTRACT TECHNICAL WRITER PROCEDURE: ??XR SHOULDER RIGHT 2VW OR MORE [...] Visit Diagnoses Diagnosis Right shoulder pain, unspecified chronicity- Primary Right shoulder pain, unspecified chronicity documented in this encounter Care Teams Riprap Placing Supervisor Relationship Specialty Start Date End Date Osman Astorga MD [address] [place] [address] PCP - General Family Medicine 08/06/24 documented as of this encounter
== END 2024-08-22 15:32 | disposition home or self-care (01) ==
LOC: ANHIMG 15:32
PROVIDERS: PCP Family Medicine; Visit Provider Nurse Practitioner Family
DX: M16.0 Bilateral primary osteoarthritis of hip (principal); M47.816 Spondylosis without myelopathy or radiculopathy, lumbar region; Z13.220 Encounter for screening for lipoid disorders; R74.8 Abnormal levels of other serum enzymes; N39.43 Post-void dribbling; N52.9 Male erectile dysfunction, unspecified; E03.9 Hypothyroidism, unspecified; Z79.899 Other long term (current) drug therapy
CPT/HCPCS: 36415; 72110; 73521; 80053; 80061; 84153; 84439; 84443

== ENCOUNTER 2024-11-04 14:19 | Outpatient (CLI) | payer OTHER, SELFPAY ==
--- NOTE | 2024-11-04 15:00 | ECG_ITS ---
Test Date: 2024-11-04 15:06:40 Measurements Intervals [place] Rate: 88 P: 66 ME: 156 QRS: 22 QRSD: 114 T: 53 QT: 380 QTc: 460 Interpretive Statements SINUS RHYTHM POSSIBLE LEFT ATRIAL ENLARGEMENT CANNOT R/O SEPTAL INFARCT, AGE INDETERMINATE ABNORMAL ECG No previous ECG available for comparison Electronically Signed On 11-04-2024 15:33:51 HAT TRIMMER by Tiago Schultz D.O.
[2024-11-04 15:01] LABS: Basophils Percent Auto 0.5 % (0.2-1.2); Eosinophils Absolute Auto 0.3 K/mm3 (0-0.3); Eosinophils Percent Auto 4.2 % (0-4.4); Hematocrit 48.3 % (42.0-52.0); Hemoglobin 15.8 g/dL (14.0-18.0); Immature Granulocyte Absolute 0.02 K/mm3 (0.00-0.031); Immature Granulocyte Percent A 0.3 % (0-0.5); Lymphocytes Absolute Auto 1.54 K/mm3 (0.9-3.2); Lymphocytes Percent Auto 26.1 % (18.3-44.2); Mean Corpuscular HGB Conc 32.7 g/dl (32-36); Mean Corpuscular Hemoglobin 28.4 pg (26-34); Mean Corpuscular Volume 86.9 fl (80-100); Mean Platelet Volume 10.1 fl (7.4-10.4); Monocytes Absolute Auto 0.5 K/mm3 (0.1-0.6); Monocytes Percent Auto 9.2 % (2.6-8.5); Neutrophils Absolute Auto 3.5 K/mm3 (1.3-6.7); Neutrophils Percent Auto 59.7 % (45.5-73.1); Platelet Count Result 251 k/mm3 (150-375); Red Blood Count 5.56 M/mm3 (4.6-6.20); Red Cell Distribution Width 13.3 % (11.5-14.5); White Blood Count 5.9 K/mm3 (4.5-10.0)
[2024-11-04 15:06] LABS: Add Urine Microscopic? NO; Appearance Urine Clear (Clear); Bilirubin Urine Negative (Negative); Blood Urine Negative (Negative); Color Urine Yellow (Yellow); Glucose Urine UA 2+ mg/dL (Negative); Ketones Urine Trace mg/dL (Negative); Leukocyte Esterase Ur Negative LEU/UL (Negative); Nitrate Urine Negative (Negative); Protein Urine Negative (Negative); Specific Grav Ur 1.031 (1.001-1.035)
[2024-11-04 15:10] LABS: Alanine Aminotransferase 51 U/L (6-50); Albumin Level 4.7 g/dL (3.5-5.1); Alkaline Phosphatase 99 U/L (38-126); Aspartate Amino Transferase 32 U/L (17-59); Bilirubin,Total 0.9 mg/dL (0.2-1.3)
[2024-11-04 15:37] LABS: Vitamin D 25 Hydroxy 27.2 ng/mL
[2024-11-04 15:45] LABS: Hemoglobin A1C 7.8 % (<5.7)
--- OUTSIDE RECORDS SUMMARY | 2024-11-04 16:37 | XMS_ITS | Referral Summary ---
Author Organization [facility] Address [address] [place] [address] Care Team Providers Care Coremaker Supervisor Name Role Phone Osman Astorga MD Primary Care Provider Source Comments [facility],non-owned Affiliates and Associated Physician Practices is amultiple site organization consisting of ambulatory clinics and hospital sitesin [place]. This disclosure is being madepursuant to the Care Everywhere program and may not contain all information available regarding this patient. Last updated 18.[facility] Encounters Date Type Department Care Team Description 08/06/2024 12:34 PM DIRECTOR OF ANALYTICS - 08/06/2024 11:59 PM DIRECTOR OF ANALYTICS Hospital Encounter [facility] DIAGNOSTIC RAD [facility] [address] [place] [address] Dylan Torrez MD Discharge Disposition: Home or Self Care 08/06/2024 11:40 AM DIRECTOR OF ANALYTICS Office Visit [facility] - Orthopedics [address] [place] [address] Dylan Torrez MD Right shoulder pain, unspecified chronicity (Primary Dx) from Last 3 Months Allergies No known [...] mouth once daily as needed 07/21/2024 Active Active Problems No known active problems Social [...] MORE Routine 08/06/2024 12:42 PM DIRECTOR OF ANALYTICS Right shoulder pain, unspecified chronicity from Last 3 Months Results * XR Shoulder Right 2Vw or More (08/06/2024 12:42 PM DIRECTOR OF ANALYTICS) Anatomical Region Laterality Modality Upper Extremity Computed Radiogr aphy 08/06/2024 1:02 PM DIRECTOR OF ANALYTICS Impressions 08/06/2024 1:03 PM DIRECTOR OF ANALYTICS IMPRESSION: Mild degenerative change. > Interpreting Provider: Samuel Bernard MD on 08/06/2024 1:03 PM Narrative 08/06/2024 1:03 PM DIRECTOR OF ANALYTICS PROCEDURE: XR SHOULDER RIGHT 2VW OR MORE [...] RDERABLES from Last 3 Months Care Teams Coremaker Supervisor Relationship Specialty Start Date End Date Osman Astorga MD [address] [place] [address] PCP - General Family Medicine 08/06/24
--- OUTSIDE RECORDS SUMMARY | 2024-11-04 16:37 | XMS_ITS | Clinical Summary ---
Author Organization [facility] [employer] Address [address] [place] [address] Care Team Providers Care Pathological Technician Name Role Phone Osman Astorga MD Primary Care Provider [phone] Source Comments [facility] [employer],non-owned Affiliates and Associated Physician Practices is amultiple site organization consisting of ambulatory clinics and hospital sitesin [place], [place], [place] and [place]. This disclosure is being madepursuant to the Care Everywhere program and may not contain all information available regarding this patient. Last updated 18.[employer] Allergies No known active allergies Medications * [...] Active Active Problems No known active problems Encounters Date Type Department Care Team Description 08/06/2024 12:34 PM CASING COOKER - 08/06/2024 11:59 PM CASING COOKER Hospital Encounter [facility] [address] [address] [place] [address] Dylan Torrez MD Discharge Disposition: Home or Self Care 08/06/2024 11:40 AM CASING COOKER Office Visit [facility] - Orthopedics [address] [place] [address] Dylan Torrez MD Right shoulder pain, unspecified chronicity (Primary Dx) from Last 3 Months Social History Tobacco [...] of 3 - 19+ 3-dose series) 1987 PNEUMOCOCCAL VACCINE 50+ (1 of 1 - PCV) 2018 ZOSTER VACCINE (1 of 2) 2018 COVID-19 VACCINE (2023-2 5 season) 2024 INFLUENZA VACCINE (#1) 2024 DEPRESSION SCREENING 09/10/2024 08/06/2024 HIB VACCINE Aged Out No longer eligi ble based on patient's age to complete this topic HPV VACCINE Aged Out No longer eligi ble based on patient's age to complete this topic MENINGOCOCCAL (Group B) VACCINE Aged Out No longer eligible based on patient's age to complete this topic MENINGOCOCCAL VACCINE Aged Out No dontrell chantal eligible based on patient's age to complete this topic PNEUMOCOCCAL VACCINE Aged Out No long er eligible based on patient's age to complete this topic Procedures Procedure Name Priority Date/Time Associated Diagnosis Comments XR SHOULDER RIGHT 2VW OR MORE Routine 08/06/2024 12:42 PM CASING COOKER Right shoulder pain, unspecified chronicity from Last 3 Months Results * XR Shoulder Right 2Vw or More (08/06/2024 12:42 PM CASING COOKER) Anatomical Region Laterality Modality Upper Extremity Computed Radiogr aphy 08/06/2024 1:02 PM CASING COOKER Impressions 08/06/2024 1:03 PM CASING COOKER IMPRESSION: Mild degenerative change. > Interpreting Provider: Samuel Bernard MD on 08/06/2024 1:03 PM Narrative 08/06/2024 1:03 PM CASING COOKER PROCEDURE: XR SHOULDER RIGHT 2VW OR MORE [...] RDERABLES from Last 3 Months Care Teams Pathological Technician Relationship Specialty Start Date End Date Osman Astorga MD [address] [place] [address] PCP - General Family Medicine 08/06/24
--- OUTSIDE RECORDS SUMMARY | 2024-11-04 16:37 | XMS_ITS | Patient Health Summary ---
Author Organization [facility] Address [address] [place] [address] Care Team Providers Care Transition Social Worker Name Role Phone Osman Astorga MD Primary Care Provider [phone] Note from [facility],non-owned Affiliates and Associated Physician Practices is amultiple site organization consisting of ambulatory clinics and hospital sitesin [place], [place], [place] and [place]. This disclosure is being madepursuant to the Care Everywhere program and may not contain all information available regarding this patient. Last updated 18.[facility] Allergies No known active allergies [...] tablet by mouth once daily as needed Active Problems No known active problems Social [...] Right 2Vw or More (08/06/2024 12:42 PM LUMBER GRADER) Anatomical Region Laterality Modality Upper Extremity Computed Radiogr aphy 08/06/2024 1:02 PM LUMBER GRADER Impressions 08/06/2024 1:03 PM LUMBER GRADER IMPRESSION: Mild degenerative change. > Interpreting Provider: Samuel Bernard MD on 08/06/2024 1:03 PM Narrative 08/06/2024 1:03 PM LUMBER GRADER PROCEDURE: XR SHOULDER RIGHT 2VW OR MORE [...] Dylan Torrez MD DIAGNOSTIC IMAGING O RDERABLES Care Teams Transition Social Worker Relationship Specialty Start Date End Date Osman Astorga MD [address] [place] [address] PCP - General Family Medicine 08/06/24
--- OUTSIDE RECORDS SUMMARY | 2024-11-04 16:37 | XMS_ITS | CONTINUITY OF CARE DOCUMENT ---
Author Name bryan adams Address Unknown Organization [facility] Address [address] [place] [address] Phone [phone] Care Team Providers Care Resident Surgeon Name Role Phone Jordan Henson MD Unavailable [phone] Jordan Henson MD Unavailable [phone] INS[employer]ANCE PROVID[employer] Payer name Policy type / Coverage type [place] red [employer] ID [facility] [id number] Other [id number]
== END 2024-11-04 14:20 | disposition home or self-care (01) ==
LOC: ANHLAB 14:21
PROVIDERS: PCP Family Medicine; Referring Provider Nurse Practitioner Family; Visit Provider Orthopaedic Surgery
DX: E55.9 Vitamin D deficiency, unspecified (principal); I10 Essential (primary) hypertension; R73.03 Prediabetes; R74.8 Abnormal levels of other serum enzymes
CPT/HCPCS: 36415; 80076; 81003; 82306; 83036; 85025; 93005